=== PATIENT | male | born 1960 | race Caucasian/White ===

== ENCOUNTER 2017-09-19 15:25 | Emergency (ER) | payer MEDICAID ==
[~2017-09-19 15:25] MED LIST: BAYEMIS; GEMF600T PO; GLUCOMETER XX; GLUCOMTESTSTRIPS XX; INSU-118; LEVEMIR SQ; LOSA50 PO; SULF-154 PO
[2017-09-19 15:27] VITALS: BP 177/80; PULSE 105; RESP 18; TEMP 98.6; O2SAT 99
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
[2017-09-19] MEDS ORDERED: CEPH-460 PO (16:51)
[2017-09-19] MEDS ORDERED: BACT800T5 PO (16:51)
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
== END 2017-09-19 17:23 | disposition home or self-care (01) ==
LOC: NEPK 15:25
DX: L03.116 Cellulitis of left lower limb (principal)
CPT/HCPCS: 93971; 99283